=== PATIENT | male | born 1955 | race Caucasian/White ===

== ENCOUNTER 2017-10-07 12:31 | Emergency (ER) | payer MEDICARE ==
[~2017-10-07] VITALS: Ht 175.3 cm; Wt 95.2 kg
[2017-10-07] MEDS ORDERED: COLACE 2-IN-11 EACH PO (15:14)
[2017-10-07] MEDS ORDERED: Omeprazole20 M1 (15:14)
== END 2017-10-07 17:13 | disposition short-term general hospital (02) ==
LOC: ER 12:31
DX: S72.002A Fracture of unspecified part of neck of left femur, initial encounter for closed fracture (principal); M97.02XA Periprosthetic fracture around internal prosthetic left hip joint, initial encounter; Z87.891 Personal history of nicotine dependence; X58.XXXA Exposure to other specified factors, initial encounter; Z79.899 Other long term (current) drug therapy
CPT/HCPCS: 73502; 96374; 96376; 99285; J3010

== ENCOUNTER 2020-04-04 10:23 | Inpatient (IN) | payer OTHER, MEDICARE ==
[~2020-04-04] VITALS: Ht 175.3 cm; Wt 82.2 kg
[~2020-04-04 10:23] MED LIST: COLACE 2-IN-11 EACH PO; Omeprazole20 M1 PO
[2020-04-04] MEDS ORDERED: HYDCHL12.5 PO (10:41)
[2020-04-04 10:47] LABS: BASOPHILS ABSOLUTE AUTO 0.03 K/mm3 (0.00-0.23); BASOPHILS PERCENT AUTO 1 % (0-2); EOSINOPHILS ABSOLUTE AUTO 0.08 K/mm3 (0.00-0.68); EOSINOPHILS PERCENT AUTO 1 % (0-6); Hematocrit 51.5 % (37.0-53.0); Hemoglobin 16.6 g/dL (13.5-17.5); IMMATURE GRAN ABSOLUTE AUTO 0.02 K/mm3 (0.00-0.10); IMMATURE GRAN PERCENT AUTO 0 % (0-1); LYMPHOCYTES ABSOLUTE AUTO 1.09 K/mm3 (0.84-5.20); LYMPHOCYTES PERCENT AUTO 17 % (21-46); MONOCYTES ABSOLUTE AUTO 0.45 K/mm3 (0.16-1.47); MONOCYTES PERCENT AUTO 7 % (4-13); Mean Corpuscular HGB 29.2 pg (26.0-34.0); Mean Corpuscular HGB Conc 32.2 g/dL (31.5-36.5); Mean Corpuscular Volume 91 fL (80-100); Mean Platelet Volume 10.7 fL (9.1-12.4); NEUTROPHILS ABSOLUTE AUTO 4.59 K/mm3 (1.96-9.15); NEUTROPHILS PERCENT AUTO 73 % (41-73); Platelet Count 160 K/mm3 (150-400); RDW Coefficient Variation 13.5 % (11.7-14.2); Red Blood Cell Count 5.69 M/mm3 (4.30-5.90); White Blood Cell Count 6.26 K/mm3 (4.00-11.30)
[2020-04-04 11:09] LABS: Alanine Aminotransfer (ALT/SGP 30 U/L (12-78); Albumin, Blood 3.6 g/dL (3.4-5.0); Alk Phos 92 U/L (50-136); Anion Gap 7 mmol/L (6-16); Aspartate Aminotrans (AST/SGOT 21 U/L (12-37); Bilirubin, Total 0.6 mg/dL (0.1-1.0); Blood Urea Nitrogen 11 mg/dL (8-24); Bun/Creatinine Ratio 13.1 (12.0-20.0); CO2, Blood 23 mmol/L (21-32); Calcium, Blood 9.2 mg/dL (8.5-10.1); Chloride, Blood 113 mmol/L (98-108); Creatinine, Blood 0.84 mg/dL (0.60-1.20); Globulin, Blood 3.6 g/dL (2.2-4.0); Glomerular Filtration Rate >60 (60-); Glucose, Blood 97 mg/dL (70-99); Potassium, Blood 4.1 mmol/L (3.5-5.5); Sodium, Blood 143 mmol/L (136-145); Total Protein, Blood 7.2 g/dL (6.4-8.2)
[2020-04-04 12:02] LABS: International Normalized Ratio 0.97; Prothrombin Time Results 10.4 Sec (9.7-11.5)
--- NOTE | 2020-04-04 15:16 | NUR ---
ARRIVAL TO PCU 1505 - PT ARRIVES FROM ED AT THIS TIME. HE IS A/O X3, CALM AND COOPERATIVE. ARRIVES WTIH HEPARIN GTT INFUSING AT 13 UNITS/HR. CALL CENTER SPECIALIST STAFF AT BEDSIDE PT ARRIVES AND PT TAKEN TO CALL CENTER SPECIALIST AT 1515. HEPARIN GTT ON STANDBY. COZAAR PO GIVEN. UNABLE TO PULL PLAVIX FROM PYXIS; CALL CENTER SPECIALIST STAFF STATE THEY WILL ADMINISTER PLAVIX.
--- NOTE | 2020-04-04 17:10 | NUR ---
[facility] and report received from Jacki at the bedside. pt is awake, alert, pleasantly conversant,and denies any dsypnea or chest pain. TR band on the right wrist visualized, site right wrist arterial access is without bleeding,bruising or edema. Distal pulse palpated. Right hand is cyanotic, but spo2 measured on the second digit of the right hand is 95%. White immobilizer board in place. Vital signs are stable.
--- NOTE | 2020-04-04 17:37 | NUR ---
Assisted to stand at side of the bed to urinate. He tolerated it well. Now sitting up in bed, eating dinner. PRovided with large cup of ice water. He has a good appetite.
--- NOTE | 2020-04-04 18:18 | NUR ---
ASSUMED CARE PT SETTLED FROM SCARFING MACHINE OPERATOR BY STAFF AND CARE ASSUMED AFTER. PT WAS SITTING UP IN BED WHEN HE SUDDENLY VOMITED. ZOFRAN 4 MG IVP GIVEN AND THEN PT NEEDED TO SUDDENLY HAVE A BOWEL MOVEMENT. HE INDEPENDENTLY AMBULATED TO RESTROOM WHERE HE HAD A SMALL BM. IV SALINE LOCKED. NAUSEA IMPROVED NOW. PT SITTING UPRIGHT TALKING ON HIS CELL PHONE. WILL ADMINISTER EVENING DOSE OF ANTACID EARLY. NSR, HR 50S. TR BAND SECURED ON RIGHT WRIS. RADIAL PULSE PRESENT AND BOUNDING. R ARM SECURED IN ARM BOARD. WILL GIVE BEDSIDE, HANDOFF REPORT TO NOC RN.
--- NOTE | 2020-04-04 18:28 | NUR ---
PEPCID ADMINISTERED AT THIS TIME; THE PT IS HAVING ONGOING NAUSEA DESPITE ZOFRAN DOSE ALMOST AN HOUR AGO.
--- NOTE | 2020-04-04 22:11 | NUR ---
TR BAND DEFLATED TR BAND COMPLETELY DEFLATED AT APPROX 2200. PATIENT DENIES ANY NUMBNESS OR TINGLING. PATIENT DENIES ANY PAIN AT TR BAND SITE. NO BLEEDING OR BRUISING NOTED AT THIS TIME. ARMBOARD IN PLACE. PATIENT PROVIDED WITH POST ANGIO EDUCUCATION AND MOVEMENT RESTRICTIONS.
--- NOTE | 2020-04-04 23:57 | NUR ---
UPDATE TR BAND OFF AT APPROX 2315. TEGEDERM PLACED OVER SITE. NO BLEEDING, BURISING, OR HEMATOMA FORMATION NOTED AT THIS TIME. ARMBOARD IN PLACE.
[2020-04-05 04:19] LABS: BASOPHILS ABSOLUTE AUTO 0.03 K/mm3 (0.00-0.23); BASOPHILS PERCENT AUTO 1 % (0-2); EOSINOPHILS ABSOLUTE AUTO 0.13 K/mm3 (0.00-0.68); EOSINOPHILS PERCENT AUTO 2 % (0-6); Hematocrit 47.7 % (37.0-53.0); Hemoglobin 15.7 g/dL (13.5-17.5); IMMATURE GRAN ABSOLUTE AUTO 0.01 K/mm3 (0.00-0.10); IMMATURE GRAN PERCENT AUTO 0 % (0-1); LYMPHOCYTES ABSOLUTE AUTO 1.24 K/mm3 (0.84-5.20); LYMPHOCYTES PERCENT AUTO 21 % (21-46); MONOCYTES ABSOLUTE AUTO 0.42 K/mm3 (0.16-1.47); MONOCYTES PERCENT AUTO 7 % (4-13); Mean Corpuscular HGB 28.9 pg (26.0-34.0); Mean Corpuscular HGB Conc 32.9 g/dL (31.5-36.5); Mean Corpuscular Volume 88 fL (80-100); Mean Platelet Volume 10.9 fL (9.1-12.4); NEUTROPHILS ABSOLUTE AUTO 4.01 K/mm3 (1.96-9.15); NEUTROPHILS PERCENT AUTO 69 % (41-73); Platelet Count 166 K/mm3 (150-400); RDW Coefficient Variation 13.5 % (11.7-14.2); RDW Standard Deviation 43.6 fL (35.1-46.3); Red Blood Cell Count 5.43 M/mm3 (4.30-5.90); White Blood Cell Count 5.84 K/mm3 (4.00-11.30)
[2020-04-05 04:42] LABS: Alanine Aminotransfer (ALT/SGP 31 U/L (12-78); Albumin, Blood 3.5 g/dL (3.4-5.0); Albumin/Globulin Ratio 1.1 (0.8-1.8); Alk Phos 88 U/L (50-136); Anion Gap 6 mmol/L (6-16); Aspartate Aminotrans (AST/SGOT 18 U/L (12-37); Blood Urea Nitrogen 10 mg/dL (8-24); Bun/Creatinine Ratio 11.6 (12.0-20.0); CHOL/HDL RATIO 5.6; CO2, Blood 24 mmol/L (21-32); Calcium, Blood 8.9 mg/dL (8.5-10.1); Chloride, Blood 109 mmol/L (98-108); Cholesterol 189 mg/dL (50-200); Creatinine, Blood 0.86 mg/dL (0.60-1.20); Globulin, Blood 3.3 g/dL (2.2-4.0); Glomerular Filtration Rate >60 (60-); Glucose, Blood 89 mg/dL (70-99); HDL Cholesterol 34 mg/dL (>39); LDL/HDL RATIO 3.9; Low Density Lipoprotein Chol 131 mg/dL (0-110); Magnesium, Blood 2.2 mg/dL (1.6-2.4); Potassium, Blood 4.1 mmol/L (3.5-5.5); Sodium, Blood 139 mmol/L (136-145); Total Protein, Blood 6.8 g/dL (6.4-8.2); Triglycerides 119 mg/dL (30-160); Very Low Density Lipoprot Chol 23 mg/dL (6-32)
--- NOTE | 2020-04-05 06:19 | NUR ---
T WAVE CHANGES T WAVE CHANGES WERE NOTED BY GLOVE WRAPPER. EKG OBTAINED WHICH SHOWED PROLONGED QT WELL MARKED T WAVE ABNORMALITY. PATIENT STATES HE FEELS GOOD AND DENIES ANY CHANGES. DR LEOS NOTIFIED OF CHANGES AND A COPY OF EKG WAS PROVIDED. NO ORDERS RECEIVED AT THIS TIME.
--- NOTE | 2020-04-05 07:41 | NUR ---
SHIFT SUMMARY PATIENT PLEASENT AND COOPERATIVE THROUGHOUT THE NIGHT. PATIENT'S TR SITE REMAINED SOFT TO THE TOUCH WITH NO SIGNS OF BLEEDING OR BRUISING. ARMBOARD IN PLACE. PATIENT HAS DENIED ANY CHEST PAIN THROUGHOUT THE NIGHT AND STATES THAT HE IS FEELING "MUCH BETTER." PATIENT SBA IN THE ROOM. VITAL SIGNS CHARTED. REPORT GIVEN TO ONCOMING RN.
--- NOTE | 2020-04-05 08:23 | NUR ---
ASSESSMENT- PT AWAKE, ALERT, SITTING UP AT BEDSIDE. DENIES ANY PAIN OR SOB. PIV INTACT. C/O NAUSEA AND GAS. RX GIVEN. UP IN ROOM WITHOUT PROBLEMS.
--- NOTE | 2020-04-05 09:44 | NUR ---
VS STABLE. STATES NAUSEA RESOLVED. MOVING SELF IN BED.
--- NOTE | 2020-04-05 13:13 | NUR ---
UPDATE TO DR. LEOS. PT HAD C/O VAGUE PAIN LEFT CHEST BUT STATED RESOLVED WITHOUT INTERVENTION. OK FOR LOPRESSOR 25 MG AND XL LOPRESSOR 25 MG TODAY, TO START LOPRESSOR 50 MG XL TOMORROW. PT ATE LUNCH WITHOUT PROBLEMS.
--- NOTE | 2020-04-05 16:11 | NUR ---
PT DENIES COMPLAINTS. VSS
[2020-04-06 04:44] LABS: Albumin, Blood 3.5 g/dL (3.4-5.0); Anion Gap 6 mmol/L (6-16); Blood Urea Nitrogen 13 mg/dL (8-24); Bun/Creatinine Ratio 13.1 (12.0-20.0); CO2, Blood 24 mmol/L (21-32); Chloride, Blood 108 mmol/L (98-108); Creatinine, Blood 0.99 mg/dL (0.60-1.20); Glomerular Filtration Rate >60 (60-); Glucose, Blood 85 mg/dL (70-99); Phosphorus, Blood 3.1 mg/dL (2.5-4.9); Potassium, Blood 4.2 mmol/L (3.5-5.5); Sodium, Blood 138 mmol/L (136-145)
--- NOTE | 2020-04-06 05:08 | NUR ---
SUMMARY NO ACUTE CHANGES NOTED THROUGH THE NIGHT. PT DENIES CP/PRESSURE, VSS, TOLERATING PO INTAKE. RHYTHM STRIP REMAINS SINUS/SB WITH INVERTED T WAVE. URINE IS ETHAN, PO FLUIDS ENC. R.RADIAL SITE C/D/I, NO S/S HEMATOMA OR BRUISING. WCTM, CALL LIGHT IN REACH.
[2020-04-06] MEDS ORDERED: PANT20 PO (12:32)
[2020-04-06] MEDS ORDERED: METO50ER PO (12:35)
[2020-04-06] MEDS ORDERED: NITR.4SL SL (12:35)
[2020-04-06] MEDS ORDERED: LOSA50 PO (12:36)
[2020-04-06] MEDS ORDERED: CLOP75 PO (12:38)
[2020-04-06] MEDS ORDERED: ATOR80 PO (12:39)
[2020-04-06] MEDS ORDERED: ASPI81CH PO (12:40)
[2020-04-06] MEDS ORDERED: ACET325 PO (12:40)
== END 2020-04-06 13:14 | disposition home or self-care (01) | DRG 247 ==
LOC: ER 10:23 → PCU 12:01 → ER 12:01 → PCU 12:01
PROVIDERS: Emergency Medicine; Pharmacist; ADMIT Internal Medicine
PROC: 4A023N7 Measurement of Cardiac Sampling and Pressure, Left Heart, Percutaneous Approach (ICD-10-PCS; principal; 2020-04-04)
PROC: 027034Z Dilation of Coronary Artery, One Artery with Drug-eluting Intraluminal Device, Percutaneous Approach (ICD-10-PCS; 2020-04-04)
PROC: 02703ZZ Dilation of Coronary Artery, One Artery, Percutaneous Approach (ICD-10-PCS; 2020-04-04)
PROC: B2111ZZ Fluoroscopy of Multiple Coronary Arteries using Low Osmolar Contrast (ICD-10-PCS; 2020-04-04)
PROC: B240ZZ3 Ultrasonography of Single Coronary Artery, Intravascular (ICD-10-PCS; 2020-04-04)
DX: I21.4 Non-ST elevation (NSTEMI) myocardial infarction (principal); Z87.891 Personal history of nicotine dependence; K21.9 Gastro-esophageal reflux disease without esophagitis; I10 Essential (primary) hypertension; E78.5 Hyperlipidemia, unspecified; Z96.643 Presence of artificial hip joint, bilateral; I25.5 Ischemic cardiomyopathy; I25.10 Atherosclerotic heart disease of native coronary artery without angina pectoris; Z79.82 Long term (current) use of aspirin
CPT/HCPCS: 36415; 71045; 76937; 80053; 80061; 80069; 83690; 83735; 83880; 84484; 85025; 85347; 85610; 85730; 92921; 92978; 93005; 93010; 93458; 96365; 96366; 96376; 99152; 99153; 99291-25; A9270-GY; C1725; C1753; C1769; C1874; C1887; C1894; C8929; C9600; J0461; J1644; J1650; J2250; J2405; J2550; J3010; J7030; J7050; Q9957; Q9967; U0004